=== PATIENT | female | born 1950 | race Caucasian/White ===

== ENCOUNTER 2019-02-15 09:26 | Day surgery (SDC) ==
[2019-02-15] MEDS: BETADINE OPTH PREP OP PRN ×2 (10:20→10:45)
[2019-02-15] MEDS: TETRACAINE 0.5% UNIT-DOSE OP PRN ×3 (10:20→10:52)
[2019-02-15] MEDS: CYCLOGYL 2% OPTH OP PRN ×3 (10:21→10:31)
[2019-02-15] MEDS ORDERED: ZOFRAN 4 MG/2 ML IVP ONE (10:34)
[2019-02-15] MEDS ORDERED: BRIMONIDINE TARTRATE 0.2% OPTH SOL OP PRN (10:34)
[2019-02-15] MEDS ORDERED: LIDOCAINE 1% 20 ML MDV ID STA (10:34)
[2019-02-15] MEDS ORDERED: LIDOCAINE 1%/PHENYLEPHRINE 1.5% BSS (SURGERY) INTRAOCULA ONE (10:34)
[2019-02-15] MEDS ORDERED: BSS WITH EPINEPHRINE OP ONE (10:34)
[2019-02-15] MEDS ORDERED: DEX-MOXI-KETOR OPTH INJ 1/0.5/0.4 MG/ML IO ONE (10:34)
[2019-02-15] MEDS ORDERED: ZOFRAN 4 MG/2 ML ONE (10:45)
[2019-02-15] MEDS ORDERED: SUBLIMAZE ONE (10:45)
[2019-02-15] MEDS ORDERED: VERSED ONE (10:45)
[2019-02-15 13:18] VITALS: TEMP 97.6
[2019-02-20 13:25] VITALS: BP 125/79
== END 2019-02-15 11:35 | disposition home or self-care (01) ==
LOC: SURG 09:26
PROVIDERS: ATTEND Ophthalmology
DX: H25.812 Combined forms of age-related cataract, left eye (principal)

== ENCOUNTER 2019-02-28 06:45 | Day surgery (SDC) ==
[2019-02-28] MEDS: BETADINE OPTH PREP OP PRN ×2 (06:55→08:35)
[2019-02-28] MEDS: TETRACAINE 0.5% UNIT-DOSE OP PRN ×3 (06:55→08:46)
[2019-02-28] MEDS: CYCLOGYL 2% OPTH OP PRN ×3 (06:56→07:06)
[2019-02-28] MEDS ORDERED: LIDOCAINE 1% 20 ML MDV ID STA (06:57)
[2019-02-28] MEDS ORDERED: BRIMONIDINE TARTRATE 0.2% OPTH SOL OP PRN (06:57)
[2019-02-28] MEDS ORDERED: BSS WITH EPINEPHRINE OP ONE (06:57)
[2019-02-28] MEDS ORDERED: DEX-MOXI-KETOR OPTH INJ 1/0.5/0.4 MG/ML IO ONE (06:57)
[2019-02-28] MEDS ORDERED: LIDOCAINE 1%/PHENYLEPHRINE 1.5% BSS (SURGERY) INTRAOCULA ONE (06:57)
[2019-02-28] MEDS ORDERED: ZOFRAN 4 MG/2 ML IVP ONE (06:57)
[2019-02-28] MEDS ORDERED: SUBLIMAZE ONE (08:40)
[2019-02-28] MEDS ORDERED: ZOFRAN 4 MG/2 ML ONE (08:40)
[2019-02-28] MEDS ORDERED: VERSED ONE (08:40)
[2019-02-28 09:31] VITALS: TEMP 98.4
[2019-02-28 09:36] VITALS: BP 144/71
== END 2019-02-28 09:20 | disposition home or self-care (01) ==
LOC: SURG 06:45
PROVIDERS: ATTEND Ophthalmology
DX: H25.811 Combined forms of age-related cataract, right eye (principal)